=== PATIENT | male | born 1980 | race Hispanic/Latino ===

== ENCOUNTER 2023-02-11 17:08 | Emergency (ER) | payer OTHER ==
[~2023-02-11] VITALS: Ht 175.3 cm; Wt 85.2 kg
--- OUTSIDE RECORDS SUMMARY | 2023-02-11 17:11 | XMS ---
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 E.D. VISIT COUNT (12 MO.) 2 RAJAT Rosa [facility] TOTAL 3 NOTE: Visits indicate total known visits. ED/UCC VISIT TRACKING (12 MO.) 02/11/2023 17:08 [facility] [place] TYPE: Emergency COMPLAINT: - RT FOOT PAIN 02/09/2023 12:42 [facility] [place] TYPE: Emergency COMPLAINT: - TOP R FOOT PAIN 06/30/2022 10:42 [facility] [place] TYPE: Emergency DIAGNOSES: - Other bursitis of knee, right knee - R KNEE PAIN INPATIENT VISIT TRACKING (12 MO.) No inpatient visits to display in this time frame [email or web address]
[2023-02-11] MEDS ORDERED: HYDROCODON-ACE1 EA10 PO (19:56)
[2023-02-11] MEDS ORDERED: CRUTCHES XX (19:56)
[2023-02-11 20:38] VITALS: BP 120/76
== END 2023-02-11 20:38 | disposition home or self-care (01) ==
LOC: ED 17:08
DX: S92.354A Nondisplaced fracture of fifth metatarsal bone, right foot, initial encounter for closed fracture (principal); W18.40XA Slipping, tripping and stumbling without falling, unspecified, initial encounter; X50.1XXA Overexertion from prolonged static or awkward postures, initial encounter
CPT/HCPCS: 73630; 99283-25; A9270